=== PATIENT | female | born 1930 | race Caucasian/White ===

== ENCOUNTER → 2016-03-01 | Outpatient (CLI) | payer OTHER ==
[2016-03-01 10:02] LABS: CREATININE, URINE 56.8 MG/DL (15-500)
[2016-03-01 10:07] LABS: ASPARTATE AMINO TRANSFERASE 25 IU/L (8-39); BILIRUBIN,TOTAL 0.6 mg/dL (0.3-1.2); BLOOD UREA NITROGEN 33 mg/dL (7-22); BUN/CREATININE RATIO 23.57 (6-20); CALCIUM 9.4 mg/dL (8.7-10.7); CHLORIDE 105 meq/L (98-112); CREATININE 1.4 mg/dL (0.50-1.20); GLUCOSE 158 mg/dL (78-110); HDL CHOLESTEROL 38 mg/dL (40-150); POTASSIUM 4.2 meq/L (3.8-5.2); SODIUM 139 meq/L (135-145); TOTAL PROTEIN 6.6 g/dL (6.1-8.0); TRIGLYCERIDES 245 mg/dL (44-200)
[2016-03-01 10:13] LABS: HEMOGLOBIN A1C 6.38 % (4.2-6.0); MEAN BLOOD GLUCOSE (CALC) 126.454 mg/dL
== END ==
LOC: LAB 09:16
PROVIDERS: ATTEND Internal Medicine
DX: E11.9 Type 2 diabetes mellitus without complications (principal); E78.5 Hyperlipidemia, unspecified; F17.210 Nicotine dependence, cigarettes, uncomplicated; I73.9 Peripheral vascular disease, unspecified
CPT/HCPCS: 36415; 80053; 80061; 82043; 82550; 83036

== ENCOUNTER → 2016-03-06 | Outpatient (CLI) | payer OTHER | LOC: MMPC 11:11 | PROVIDERS: ATTEND Internal Medicine | DX: E11.9 Type 2 diabetes mellitus without complications (principal); E78.5 Hyperlipidemia, unspecified; I10 Essential (primary) hypertension; E03.9 Hypothyroidism, unspecified; Z72.0 Tobacco use | CPT/HCPCS: 99214; G0463 ==

== ENCOUNTER → 2016-09-01 | Outpatient (CLI) | payer OTHER ==
[2016-09-01 09:23] LABS: BASOPHILS # (AUTO) 0.06 10*3/UL; BASOPHILS % (AUTO) 1.5 % (0-1); EOSINOPHILS # (AUTO) 0.14 10*3/UL; EOSINOPHILS % (AUTO) 3.6 % (0-8); HEMATOCRIT 37.1 % (37.0-47.0); HEMOGLOBIN 12.2 g/dL (12.0-16.0); LYMPHOCYTES # (AUTO) 1.41 10*3/uL; MEAN CORPUSCULAR HEMOGLOBIN 29.5 PG (27-31); MEAN CORPUSCULAR HGB CONC 32.9 g/dL (33-37); MEAN CORPUSCULAR VOLUME 89.6 FL (81-99); MEAN PLATELET VOLUME 10.1 FL (7.4-12.2); MONOCYTES # (AUTO) 0.31 10*3/UL (0.3-0.8); MONOCYTES % (AUTO) 7.9 % (5-15); NEUTROPHILS # (AUTO) 1.99 10*3/UL; NEUTROPHILS % (AUTO) 50.7 % (50-80); RED BLOOD COUNT 4.14 10^6/uL (4.20-5.40)
[2016-09-01 10:25] LABS: BLOOD UREA NITROGEN 31 mg/dL (7-22); BUN/CREATININE RATIO 22.14 (6-20); CALCIUM 9.7 mg/dL (8.7-10.7); CHOL/HDL RATIO 3.47 RATIO (0-4.0); HDL CHOLESTEROL 40 mg/dL (40-150); SERUM ALBUMIN 3.8 g/dL (3.5-4.8); SERUM CHOLESTEROL 139 mg/dL (120-200)
[2016-09-01 10:27] LABS: PLATELET MORPHOLOGY COMMENT NORMAL MORPHOLOGY (NORM); RBC MORPHOLOGY COMMENT NORMAL MORPHOLOGY (NORM); WBC MORPHOLOGY COMMENT NORMAL MORPHOLOGY (NORM)
[2016-09-01 10:57] LABS: HEMOGLOBIN A1C 5.44 % (4.2-6.0)
[2016-09-01 10:59] LABS: CREATININE, URINE 50.4 MG/DL (15-500)
== END ==
LOC: LAB 08:44
PROVIDERS: ATTEND Internal Medicine
DX: E11.9 Type 2 diabetes mellitus without complications (principal); E78.5 Hyperlipidemia, unspecified; I10 Essential (primary) hypertension; E03.9 Hypothyroidism, unspecified; F17.200 Nicotine dependence, unspecified, uncomplicated
CPT/HCPCS: 36415; 80053; 80061; 82043; 82550; 83036; 84443; 85025

== ENCOUNTER → 2016-09-04 | Outpatient (CLI) | payer OTHER | LOC: MMPC 11:11 | PROVIDERS: ATTEND Internal Medicine | DX: E11.9 Type 2 diabetes mellitus without complications (principal); E78.5 Hyperlipidemia, unspecified; I73.9 Peripheral vascular disease, unspecified; L57.0 Actinic keratosis; Z87.891 Personal history of nicotine dependence | CPT/HCPCS: 17000 ×2; 17003 ×2; 99214; G0463 ==

== ENCOUNTER → 2016-09-07 | Outpatient (CLI) | payer OTHER ==
--- NOTE | 2016-09-07 12:34 | DI ---
CT CHEST SCAN WITHOUT IV CONTRAST, 09/07/2016 10:15 AM : Clinical History: Nicotine dependence. Previous Exam: None at this facility. Scans are performed from the base of the neck to the lower lung bases without IV contrast. Sagittal a nd coronal images using non MIPS and MIPS technique are generated. The base of the neck and thoracic inlet are normal. There are no abnormal axillary, supraclavicular, mediastinal, or hilar nodes. The heart is normal. Calcifications are present in the proximal and midd le thirds of the LAD and in the first diagonal branch as well as the left circumflex artery and the r ight coronary artery. There is no acute infiltrate or effusion. There is a 10 mm calcified granuloma in the medial segment of the right middle lobe near the right heart surface. There are small 3 mm non calcified nodules located in the left upper lobe and the right lower lobe as well as a pleural-based 5 mm nodule located in the posterobasal segment of the left lower lobe. Both adrenal glands and the v isualized portions of the liver and pancreas are normal. The spleen is unremarkable although it does have calcifications and this together with the calcification in the right middle lobe would be consis tent with prior exposure to either TB or histoplasmosis. READIN. There is a calcified granuloma in the right middle lobe and there are punctate calcifications in the spleen. This pattern typically is associated with previous exposure to either TB or histoplasmosi s. 2. There are noncalcified 3 mm nodules in the left upper lobe and the right lower lobe. There is a p leural-based 5 mm noncalcified nodule in the left lower lobe. This patient is considered to be high-r isk for developing lung cancer. The pleural-based nodule. There are low risk factor. The size of the other nodules based on the 2017 guidelines of the [employer] recommendations suggest a f ollowup noncontrast CT scan in 12 months.
== END ==
LOC: CT 09:36
PROVIDERS: ATTEND Internal Medicine
DX: R06.00 Dyspnea, unspecified (principal); F17.200 Nicotine dependence, unspecified, uncomplicated
CPT/HCPCS: 71250